=== PATIENT | male | born 1965 | race Caucasian/White ===

== ENCOUNTER → 2021-09-06 13:56 | Outpatient (CLI) | payer OTHER, SELFPAY ==
[2021-09-06 18:52] LABS: Add Manual Diff / Slide Review NO; Basophils Absolute Auto 100 /uL (0-100); Basophils Percent Auto 0.9 % (0-2); Eosinophils Absolute Auto 100 /uL (0-450); Eosinophils Percent Auto 1.1 % (2-4); Hematocrit 47.4 % (41-53); Hemoglobin 16.4 g/dL (13.5-17.5); Lymphocytes Absolute Auto 1800 /uL (1100-4500); Lymphocytes Percent Auto 18.6 % (25-40); Mean Corpuscular HGB Conc 34.7 % (30-36); Mean Corpuscular Hemoglobin 28.6 PG (26-34); Mean Corpuscular Volume 82.5 fL (80-100); Monocytes Absolute Auto 900 /uL (0-900); Monocytes Percent Auto 9.5 % (3-14); Neutrophils Absolute Auto 6900 /uL (1500-7000); Neutrophils Percent Auto 69.9 % (50-75); Platelet Count 296 X10^3/uL (150-400); Red Blood Cell Count 5.75 X10^6/uL (4.5-5.9); White Blood Cell Count 9.9 X10^3/uL (4.5-11.0)
[2021-09-06 19:08] LABS: Alanine Aminotransferase 42 IU/L (<50); Albumin 4.9 g/dL (3.5-5.0); Albumin Globulin Ratio 1.6 (1.0-2.8); Alkaline Phosphatase 95 U/L (38-126); Aspartate Aminotransferase 54 IU/L (17-59); BUN Creatinine Ratio 19.4 (6-22); Bilirubin Total 1.4 mg/dL (0.2-1.3); Blood Urea Nitrogen 14 mg/dL (9-20); Calcium 9.7 mg/dL (8.4-10.2); Carbon Dioxide 24 mmol/L (22-32); Chloride 103 mmol/L (98-107); Cholesterol 174 mg/dL (140-199); Estimated Glomerular Filt Rate > 60 mL/min (>60); Glucose 198 mg/dL (70-100); HDL Cholesterol 55 mg/dL (40-60); HEMOLYSIS < 15 (0-50); LDL Cholesterol Calculated 83 mg/dL (<100); Potassium 4.1 mmol/L (3.4-5.1); Sodium 140 mmol/L (137-145); Total Protein 7.9 g/dL (6.3-8.2); Triglycerides 181 mg/dL (35-150); Uric Acid 7.4 mg/dL (3.5-8.5)
[2021-09-06 19:36] LABS: Prostate Specific Antigen Scrn 1.02 ng/mL (0.1-4.0)
== END ==
PROVIDERS: PCP Family Medicine; Visit Provider Family Medicine
DX: I10 Essential (primary) hypertension (principal); Z00.00 Encounter for general adult medical examination without abnormal findings; Z12.5 Encounter for screening for malignant neoplasm of prostate
CPT/HCPCS: 80053; 80061; 83036; 84550; 85025; G0103

== ENCOUNTER → 2022-02-15 13:40 | Outpatient (CLI) | payer OTHER, SELFPAY ==
--- NOTE | 2022-03-07 17:08 | DIAB.MNT ---
Initial Diabetes Medical Nutrition Therapy Assessment Name: Ming Kessler (Mane) Date: 02/15/22 Time: 110-215p Dx: Type II Diabetes Provider: Nelson Gilliam presents for initial visit regarding T2DM virtually using [employer] platform. +FH of Dm with father and brother. Reports he thinks most of this dx is due to being overweight and family genetics. Feels DM hit him hard. Father form DM complications. States he hates taking medications, and feels he is failing if he needs meds. Taking Metformin as rx'd for 6 weeks with little GI upset. Taking with food. Works in [employer], hours are quite variable. Sleep patterns are sparatic with 7-8 hours for most nights. Some night shifts. Lost 25# since diagnosis by reducing carb intake and eating more veggies, avoiding candy and trying to avoid late night eating. Has SF candy to sub sometimes. Tries to avoid butter and salt. Focusing more of proteins, low carb meals. reports he has a supportive . Diet Recall: 730a: egg, fruit and toast or bagel or yogurt or michael heather sandwich 10a: nothing or seeds or fruit or yogurt 2-3p: lunch at home, usually healthy choice rice bowls (10g CHO) or ham and cheese sandwich 7p: 3-4oz pro, light bbq sauce, spinach salad with j luis dressing (10-15g CHO) or pro with non starch veg Beverages; 64-100oz water, sf soda Anthropometrics: Ht: 6'1'' Wt: 278# Weight history: UBW reported 300-310# Physical Activity: Work is can be physical ([employer]). Carries a 30# pack at work. Was playing [employer] before covid. Trying to find a partner for this. Self-Monitoring Blood Glucose: None Diabetes Medications: 1000mg Metformin BID Pertinent Labs: HgA1c 8% 08/2021 Past Medical History: (Last Reviewed 02/28/22 @ 11:52 by Abdiel Damon DO) Common wart Encounter for hepatitis C screening test for low risk patient Encounter for screening for HIV Preventative health care Screening for deficiency anemia Screening for lipid disorders Screening for prostate cancer Type 2 diabetes mellitus Well adult exam Nutrition Rx: Carbohydrates: Meal:45g Snack:15-30g Nutrition Diagnosis: - Nutrition knowledge deficit r/t new dx DM aeb hgA1c 8% and pt report - Physical inactivity r/t preparation stage of change aeb pt report falling off exercise since covid and needing workout partner Intervention: This participant was very receptive. Provided appropriate educational handouts. Discussed the following topics: Completed intake assessment. Discussed barriers to care. Pathophysiology of T2DM HgA1c, its correlation to blood glucose numbers, and rationale for goal Importance of self-monitoring, how often, and when to check. Suggested checking at different times to evaluate meals Plate Method, impact of macronutrients on blood sugar, meal timing, carbohydrate counting, pairing macronutrients and spreading out carbohydrates for better blood glucose management Recommended servings for carbohydrates at meals and snacks Heart health nutrition Brainstormed appropriate meal plan based on food preferences Role of physical activity and following provider guidelines for safety Created SMART goals for patient self-care and success. Goals: Check BG 1-2x per day Try at exercise 10+ mins on days off Reduce bagel to 1/2 if having fruit Add more pro to breakfast Follow-up: ARI SHELTON follow-up in 4 weeks Mamie Bustamante RDN, NIKITA Certified Diabetes [facility] and [place] [facility] P: [phone] Thank you for this referral
== END ==
PROVIDERS: PCP Family Medicine; Referring Provider Family Medicine; Visit Provider Family Medicine
DX: E11.9 Type 2 diabetes mellitus without complications (principal); Z71.3 Dietary counseling and surveillance; Z79.84 Long term (current) use of oral hypoglycemic drugs
CPT/HCPCS: 97802

== ENCOUNTER → 2022-02-28 11:58 | Outpatient (CLI) | payer OTHER, SELFPAY ==
[2022-02-28 20:29] LABS: Add Manual Diff / Slide Review NO; Basophils Absolute Auto 100 /uL (0-100); Basophils Percent Auto 0.7 % (0-2); Eosinophils Absolute Auto 200 /uL (0-450); Hematocrit 47.6 % (41-53); Lymphocytes Absolute Auto 1500 /uL (1100-4500); Lymphocytes Percent Auto 19.1 % (25-40); Mean Corpuscular HGB Conc 33.6 % (30-36); Mean Corpuscular Hemoglobin 27.9 PG (26-34); Mean Corpuscular Volume 82.9 fL (80-100); Monocytes Absolute Auto 700 /uL (0-900); Monocytes Percent Auto 9.2 % (3-14); Neutrophils Absolute Auto 5600 /uL (1500-7000); Platelet Count 304 X10^3/uL (150-400); Red Blood Cell Count 5.74 X10^6/uL (4.5-5.9); Red Cell Distribution Width 13.7 % (11.6-14.8); White Blood Cell Count 8.1 X10^3/uL (4.5-11.0)
[2022-02-28 20:34] LABS: Alanine Aminotransferase 22 IU/L (<50); Albumin 4.7 g/dL (3.5-5.0); Albumin Globulin Ratio 1.6 (1.0-2.8); Alkaline Phosphatase 65 U/L (38-126); Aspartate Aminotransferase 28 IU/L (17-59); Bilirubin Total 1.3 mg/dL (0.2-1.3); Blood Urea Nitrogen 12 mg/dL (9-20); Calcium 9.5 mg/dL (8.4-10.2); Carbon Dioxide 25 mmol/L (22-32); Chloride 101 mmol/L (98-107); Estimated Glomerular Filt Rate > 60 mL/min (>60); Glucose 102 mg/dL (70-100); HEMOLYSIS 29 (0-50); Potassium 4.1 mmol/L (3.4-5.1); Sodium 139 mmol/L (137-145); Total Protein 7.7 g/dL (6.3-8.2)
[2022-02-28 21:01] LABS: TSH w/ Reflex to FT4 1.32 uIU/mL (0.47-4.68)
[2022-02-28 21:08] LABS: Prostate Specific Antigen 0.985 ng/mL (0.10-4.00)
== END ==
PROVIDERS: PCP Family Medicine; Visit Provider Family Medicine
DX: Z00.00 Encounter for general adult medical examination without abnormal findings (principal); I10 Essential (primary) hypertension; E11.9 Type 2 diabetes mellitus without complications
CPT/HCPCS: 80053; 84153; 84443; 85025

== ENCOUNTER → 2022-03-21 15:00 | Outpatient (CLI) | payer OTHER, SELFPAY ==
--- NOTE | 2022-03-23 13:52 | DIAB.MNTFU ---
Follow-up Diabetes Medical Nutrition Therapy Assessment Name: Ming Kessler (Mane) Date: 03/21/22 Time: 305-355p Dx: Type II Diabetes Provider: Nelson Gilliam presents for follow-up visit regarding T2DM virtually using [employer] platform. Reports noticing some waist reduction despite no changes in weight. Predicted reduced fat mass. States he has had to get a smaller work uniform since making lifestyle changes. Reports stress with work. No stress in personal life. Recent political campaign impacts his boss and the work environment. States they are short staffed and he is often working extra house. Reports some stress management experience with breathing exercises. Also tries to manage stress with exercise or watching television. States he is trying to not let food be a comfort or stress reliever. Has reduced bagel portions as discussed last visit. Added more protein to his diet with eggs, burgess, almonds, seeds in the morning. Also having big salads for lunch with the help of his 's food prep. States sometimes his does not want to cook. Those nights often result in frozen rice bowl or sandwich or fruit. Keeps a low carb protein bar in his car prn. States he is trying to be more mindful of portions and stopping eating when he feels satisfied. Has questions about ETOH and DM. Has 1-2 servings once per week with low carb mixer. Anthropometrics: Ht: 6'1'' Wt: 278# Weight history: UBW reported 300-310# Physical Activity: 1-2 walks per week on days off for 60 minutes (4 mi) Self-Monitoring Blood Glucose: None, no rx yet. Discussed with PCP. Diabetes Medications: 1000mg Metformin BID Pertinent Labs: HgA1c 8% 08/2021 Past Medical History: (Last Reviewed 02/28/22 @ 11:52 by Abdiel Damon DO) Common wart Encounter for hepatitis C screening test for low risk patient Encounter for screening for HIV Preventative health care Screening for deficiency anemia Screening for lipid disorders Screening for prostate cancer Type 2 diabetes mellitus Well adult exam Nutrition Rx: Carbohydrates: Meal:45g Snack:15-30g Nutrition Diagnosis: - Nutrition knowledge deficit r/t new dx DM aeb hgA1c 8% and pt report - improved - Physical inactivity r/t preparation stage of change aeb pt report falling off exercise since covid and needing workout partner- in progress - Nutrition knowledge deficit r/t 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 Provided appropriate educational handouts. Discussed the following topics: Encouraged him to message provider for SMBG supplies rx Stress management: breathing exercise resources Easy dinner ideas ETOH recs and impact on BG Hunger/fullness and mindfulness in eating Created SMART goals for patient self-care and success. Goals: Check BG 1-2x per day- in progress Try at exercise 10+ mins on days off- met Reduce bagel to 1/2 if having fruit- met Add more pro to breakfast - met Try breathing exercises - new Message PCP for SMBG supplies- new Try Picnic dinners - new Follow-up: ARI SHELTON follow-up in 2-3 weeks Mamie Bustamante RDN, NIKITA Certified Diabetes Care and Religious Studies Professor P: [phone] Thank you for this referral
== END ==
PROVIDERS: PCP Family Medicine; Referring Provider Family Medicine; Visit Provider Family Medicine
DX: E11.9 Type 2 diabetes mellitus without complications (principal); Z71.3 Dietary counseling and surveillance; Z79.84 Long term (current) use of oral hypoglycemic drugs
CPT/HCPCS: 97803

== ENCOUNTER → 2022-04-25 09:02 | Outpatient (CLI) | payer OTHER, SELFPAY ==
--- NOTE | 2022-05-04 09:04 | DIAB.FU ---
Follow-up Diabetes Education Assessment Name: Ming Kessler (Mane) Date: 04/25/22 Time: 11:10-1150 Dx: Type II Diabetes Provider: Nelson Gilliam presents for follow-up visit regarding T2DM virtually using [employer] platform. Reports difficulty getting meter supplies. States he asked for an A1c meter. This might be the hang up. This RD messaged PCP for rx for glucose meter. Reports a few treats here and there with cookies at the station. Overall doing well. Nights that does not cook: salads and sandwiches or leftovers or can of low Na soup or frozen healthy choice bowls. has been making large salads ahead of time. Eating more veggies. Stress: New [employer] starts next year. Trying to stay positive. Tried breathing exercises. Worked for him. First time tried during a football game, stress. Qualifying for a new firearm, used breathing exercises to stay calm. Use to get up in the night either just to wake or to use the restroom. This has improved. Less dreams about work, less mind racing. Was 2-3x urination in the night. Now maybe 1x in a night. Eye exam: Lasix in 2000. No eye appt since then. Noticing some reduction in acute vision, especially in dark or small print. Foot checks: checks when washing or grooming. Use to get dry calluses, no longer. Had toe nail fungus years ago. Meds got rid of both calluses and nail fungus. Dental: teeth cleaned q 4 months. Anthropometrics: Wt: 277# reported-- Down 3# Physical Activity: Exercise 1x per week, walking x 45 min (3 mi) when weather permits. Plans to walk today. More foot patrol at work recently. Has a gym, no current [employer] partner. Does not prefer any other indoor activity. Plans to ask a partner at work to go to [employer]. Self-Monitoring Blood Glucose: States he tried to get the meter, but the pharmacy could not obtain the meter. Still working on getting a SMBG supplies. Diabetes Medications: 1000mg Metformin BID Pertinent Labs: HgA1c 8% 08/2021; no new labs Past Medical History: (Last Reviewed 02/28/22 @ 11:52 by Abdiel Damon DO) Common wart Encounter for hepatitis C screening test for low risk patient Encounter for screening for HIV Preventative health care Screening for deficiency anemia Screening for lipid disorders Screening for prostate cancer Type 2 diabetes mellitus Well adult exam Intervention: This participant was very receptive. Provided appropriate educational handouts. Discussed the following topics: Barrier to SMBG supplies Nutrition strategies Review of general nutrition recommendations and current intake Physical activity plan and impact on blood sugars Prevention of complications: foot care, dental and eye appointments Created SMART goals for patient self-care and success. Goals: Try breathing exercises - met Message PCP for SMBG supplies- d/c Try Picnic dinners - not met Make eye appt- new Walk 1x per week even in rain- new Ask partner about racquet ball- new Follow-up: ARI SHELTON follow-up in 3-4 weeks Mamie Bustamante RDN, NIKITA Certified Diabetes Care and Corporate Administrator P: [phone] Thank you for this referral
== END ==
PROVIDERS: PCP Family Medicine; Referring Provider Family Medicine; Visit Provider Family Medicine
DX: E11.9 Type 2 diabetes mellitus without complications (principal); Z71.3 Dietary counseling and surveillance; Z79.84 Long term (current) use of oral hypoglycemic drugs
CPT/HCPCS: G0108

== ENCOUNTER → 2022-05-23 11:06 | Outpatient (CLI) | payer OTHER, SELFPAY ==
[2022-05-23 20:26] LABS: Cholesterol 163 mg/dL (140-199); HDL Cholesterol 57 mg/dL (40-60); LDL Cholesterol Calculated 92 mg/dL (<100); Triglycerides 71 mg/dL (35-150)
== END ==
PROVIDERS: PCP Family Medicine; Visit Provider Family Medicine
DX: I10 Essential (primary) hypertension (principal); Z00.00 Encounter for general adult medical examination without abnormal findings
CPT/HCPCS: 80061

== ENCOUNTER → 2022-07-25 15:04 | Outpatient (CLI) | payer OTHER, SELFPAY ==
[2022-07-25 19:18] LABS: Hemoglobin 16.4 g/dL (13.5-17.5); Red Cell Distribution Width 13.5 % (11.6-14.8)
[2022-07-25 19:30] LABS: Mean Corpuscular HGB Conc 34.2 % (30-36); Mean Corpuscular Hemoglobin 28.1 PG (26-34); Mean Corpuscular Volume 82.1 fL (80-100); Platelet Count 329 X10^3/uL (150-400); Red Blood Cell Count 5.85 X10^6/uL (4.5-5.9)
[2022-07-25 19:36] LABS: Hemoglobin A1C% w Est Avg Glu 6.4 % (4.0-6.0)
[2022-07-25 19:56] LABS: Neutrophils Absolute Manual 8450 /uL (3000-5900); RBC Morphology Normal Morphology; Total Cells Counted 100
[2022-07-25 20:00] LABS: Erythrocyte Sedimentation Rate 10 MM/HR (0-15)
== END ==
PROVIDERS: PCP Physician Assistant; Visit Provider Physician Assistant
DX: E11.9 Type 2 diabetes mellitus without complications (principal); M25.572 Pain in left ankle and joints of left foot; M25.9 Joint disorder, unspecified
CPT/HCPCS: 83036; 84550; 85025; 85651